=== PATIENT | female | born 1990 | race Caucasian/White ===

== ENCOUNTER 2020-06-14 20:03 | Emergency (ER) | payer MEDICAID ==
[~2020-06-14] VITALS: Ht 167.6 cm; Wt 54.4 kg
[2020-06-14 20:27] VITALS: BP 114/67
[2020-06-14 21:52] VITALS: BP 114/67
== END 2020-06-14 21:51 | disposition home or self-care (01) ==
LOC: MED 20:03
DX: L02.416 Cutaneous abscess of left lower limb (principal); L02.415 Cutaneous abscess of right lower limb; Z88.2 Allergy status to sulfonamides
CPT/HCPCS: 99283